=== PATIENT | female | born 1980 | race Hispanic/Latino ===

== ENCOUNTER → 2024-07-22 | Day surgery (SDC) | payer OTHER ==
[2024-07-15 15:36] LABS: HEMOGLOBIN 11.1 g/dL (12.0-16.0)
[2024-07-15 15:52] LABS: ANION GAP 11.9 mmol/L (8-16); CALCIUM 8.5 mg/dL (8.4-10.2); CREATININE, SERUM 0.85 mg/dL (0.57-1.11); POTASSIUM 3.9 mmol/L (3.5-5.1)
[~2024-07-22] MED LIST: BUPIVACAINE 0.75% ONE; CYCLOPENTOLATE HCL 2% OPTH SOLN 2 ML BTL OP ONE; FENTANYL CITRATE/PF 100MCG/2 ML INJ ONE; GATIFLOXACIN(OPTH) 5 ML LIQD ONE; LACTATED RINGER'S 1,000 ML ONE; LIDOCAINE 2% /EPINEPHRINE 20 ML SDV INJ ONE; LIDOCAINE HCL 2% LOCAL INJ 5 ML SDV VIAL INJ ONE; LIDOCAINE HCL-PF 4% 40 MG/1 ML 5ML AMP ONE; MIDAZOLAM HCL 2 MG/2 ML VIAL ONE; ONDANSETRON HCL INJ 2MG/ML 2ML 2 MG/ML VIAL ONE; PHENYLEPHRINE HCL 2 ML DROPS ONE; PROPOFOL IV EMULSION 10 MG/ML 20 ML VIAL ONE
[2024-07-22 12:55] VITALS: BP 140/88; PULSE 47; RESP 16; TEMP 97.9; O2SAT 99
== END | disposition home or self-care (01) ==
LOC: OR 08:41
PROVIDERS: ATTEND Ophthalmology
DX: H25.12 Age-related nuclear cataract, left eye (principal); Z01.810 Encounter for preprocedural cardiovascular examination; Z01.812 Encounter for preprocedural laboratory examination
CPT/HCPCS: 36415; 66984; 80048; 81025; 85014; 85018; 93005; J2001 ×2; J2250; J2405; J2704; J3010; J7121; V2632

== ENCOUNTER → 2024-09-16 | Day surgery (SDC) | payer OTHER ==
[2024-09-09 09:49] LABS: HEMATOCRIT 36.3 % (34.2-44.1); HEMOGLOBIN 11.4 g/dL (12.0-16.0)
[2024-09-09 10:08] LABS: ANION GAP 11.1 mmol/L (8-16); CALCIUM 8.7 mg/dL (8.4-10.2); CREATININE, SERUM 0.72 mg/dL (0.57-1.11); POTASSIUM 4.1 mmol/L (3.5-5.1)
[~2024-09-16] MED LIST changes: +BALANCED SALT SOLN (OPTH) 15 ML BTL IO ONE; -BUPIVACAINE 0.75% ONE; +BUPIVACAINE HC 0.75% PF 10ML VIAL INJ ONE; -CYCLOPENTOLATE HCL 2% OPTH SOLN 2 ML BTL OP ONE; +EPINEPHRINE HCL 1:1000 1ML 1 MG/ML AMP ONE; -GATIFLOXACIN(OPTH) 5 ML LIQD ONE; -LACTATED RINGER'S 1,000 ML ONE; -MIDAZOLAM HCL 2 MG/2 ML VIAL ONE; +NEOMYCIN/POLYMYXIN/DEX (OPTH) 3.5 GM TUBE ONE; -ONDANSETRON HCL INJ 2MG/ML 2ML 2 MG/ML VIAL ONE; -PHENYLEPHRINE HCL 2 ML DROPS ONE; +PILOCARPINE HCL(OPTH) 15 ML LIQD ONE; +POVIDONE IODINE 5% (OPTH) 30 ML BTL ONE
[2024-09-16] MEDS: LACTATED RINGER'S 1,000 ML ONE (06:44)
[2024-09-16] MEDS: CYCLOPENTOLATE HCL 2% OPTH SOLN 2 ML BTL OP ONE (06:45)
[2024-09-16] MEDS: PHENYLEPHRINE HCL 2 ML DROPS ONE (06:45)
[2024-09-16] MEDS: GATIFLOXACIN(OPTH) 5 ML LIQD ONE (06:45)
[2024-09-16 09:04] VITALS: TEMP 97.8
[2024-09-16 09:15] VITALS: BP 118/80; PULSE 85; RESP 16; O2SAT 98
== END | disposition home or self-care (01) ==
LOC: OR 06:14
PROVIDERS: ATTEND Ophthalmology
DX: H25.11 Age-related nuclear cataract, right eye (principal); E66.01 Morbid (severe) obesity due to excess calories; Z01.812 Encounter for preprocedural laboratory examination
CPT/HCPCS: 36415; 66984; 80048; 81025; 85014; 85018; J0171; J2003; J2004; J2704; J3010; J7121; V2632